=== PATIENT | male | born 1975 | race Caucasian/White ===

== ENCOUNTER 2017-01-13 21:29 | Emergency (ER) | payer SELFPAY ==
[~2017-01-13] VITALS: Ht 172.7 cm; Wt 68.0 kg
[~2017-01-13 21:29] MED LIST: Z.0.NO CURRENT MEDS
[2017-01-13 21:33] VITALS: BP 136/97; PULSE 83; RESP 16; TEMP 98.7; O2SAT 100
== END 2017-01-14 00:02 | disposition left against medical advice (07) ==
LOC: NED 21:29
DX: R68.89 Other general symptoms and signs (principal)
CPT/HCPCS: 99281